=== PATIENT | female | born 1995 | race Two or more races ===

== ENCOUNTER 2023-09-19 12:51 | Emergency (ER) | payer MEDICAID ==
[~2023-09-19] VITALS: Ht 162.6 cm; Wt 60.8 kg
[2023-09-19 12:55] VITALS: TEMP 98.5
[2023-09-19] MEDS ORDERED: LIDOCAINE VISCOUS 2% UD 15 ML UDC MM ONE (14:30)
[2023-09-19] MEDS ORDERED: MAG HYDROX/AL HYDROX/SIMETH 30 ML UDC PO ONE (14:30)
[2023-09-19] MEDS ORDERED: MAG HYDROX/AL HYDROX/SIMETH 30 ML UDC ONE (14:33)
[2023-09-19 15:20] LABS: PREGNANCY TEST URINE QUAL NEGATIVE (NEGATIVE)
[2023-09-19 16:16] VITALS: BP 118/66; O2SAT 98
== END 2023-09-19 16:16 | disposition home or self-care (01) ==
LOC: ER 13:00
DX: J39.2 Other diseases of pharynx (principal)
CPT/HCPCS: 70360-TC; 84703-TC

== ENCOUNTER 2024-02-16 22:50 | Emergency (ER) | payer MEDICAID ==
[~2024-02-16] VITALS: Ht 157.5 cm; Wt 61.2 kg
[2024-02-16 23:15] VITALS: BP 106/74; TEMP 98.3; O2SAT 100
[2024-02-17] MEDS ORDERED: CLIN150C16 PO (00:14)
[2024-02-17] MEDS ORDERED: CLINDAMYCIN HCL 150 MG CAPSULE ONE (00:21)
[2024-02-17] MEDS: CLINDAMYCIN HCL 150 MG CAPSULE PO ONE (00:21)
[2024-02-17] MEDS ORDERED: HYDROCODONE/APAP 5/325MG TABLET ONE (00:21)
[2024-02-17] MEDS: HYDROCODONE/APAP 5/325MG TABLET PO ONE (00:22)
== END 2024-02-17 00:27 | disposition home or self-care (01) ==
LOC: ER 22:50
DX: A49.02 Methicillin resistant Staphylococcus aureus infection, unspecified site (principal); L03.312 Cellulitis of back [any part except buttock and flank]; L02.422 Furuncle of left axilla

== ENCOUNTER 2024-06-06 00:36 | Emergency (ER) | payer MEDICAID ==
[~2024-06-06] VITALS: Ht 157.5 cm; Wt 63.5 kg
[~2024-06-06 00:36] MED LIST: CLIN150C16 PO
[2024-06-06 01:03] LABS: HEMATOCRIT 38 % (33-45); HEMOGLOBIN 12.8 g/dL (11.5-14.8); MEAN CORPUSCULAR HEMOGLOBIN 30 PG (26.0-33.0); MEAN CORPUSCULAR VOLUME 87 fL (82-100); RED BLOOD CELL COUNT(AUTO) 4.32 MIL/uL (4.0-5.2); WHITE BLOOD COUNT (AUTO) 8.2 K/uL (4.3-11.0)
[2024-06-06 01:04] LABS: BASOPHILS % (AUTO) 0.5 % (0.0-2.0); EOSINOPHILS # (AUTO) 0.2 K/uL (0.0-0.7); EOSINOPHILS % (AUTO) 1.9 % (0.0-6.0); LYMPHOCYTES # (AUTO) 1.8 K/uL (0.8-4.8); LYMPHOCYTES % (AUTO) 22.4 % (20.0-44.0); MEAN CORPUSCULAR HGB CONC 34 g/dl (31.0-36.0); MONOCYTES # (AUTO) 0.8 K/uL (0.1-1.30); MONOCYTES % (AUTO) 9.6 % (2.0-12.0); NEUTROPHILS # (AUTO) 5.4 K/uL (1.8-8.9); NEUTROPHILS % (AUTO) 65.6 % (43.0-81.0); PLATELET COUNT (AUTO) 229 K/uL (150-450); RED CELL DISTRIBUTION WIDTH 13.8 % (11.5-15.0)
[2024-06-06 01:12] LABS: CALCIUM, SERUM 8.9 mg/dL (8.5-10.1); CARBON DIOXIDE 23 mmol/L (21-32); CHLORIDE 106 mmol/L (98-107); CREATININE 0.7 mg/dL (0.6-1.3); GLUCOSE 87 mg/dL (74-106); POTASSIUM 3.3 mmol/L (3.5-5.1); SODIUM SERUM 143 mmol/L (136-145); UREA NITROGEN, BLOOD 17 mg/dL (7-18)
[2024-06-06 01:16] LABS: ALANINE AMINOTRANSFERASE 19 U/L (12-78); ALBUMIN 3.5 g/dL (3.4-5.0); ALKALINE PHOSPHATASE 71 U/L (46-116); ASPARTATE AMINOTRANSFERASE 10 U/L (15-37); BILIRUBIN,DIRECT 0.2 mg/dL (0.0-0.2); BILIRUBIN,TOTAL 0.5 mg/dL (0.2-1.0); TOTAL PROTEIN, SERUM 7.6 g/dL (6.4-8.2)
[2024-06-06 01:18] LABS: INR 0.96 (0.91-1.10); PARTIAL THROMBOPLASTIN TIME 30.2 SEC (24.3-34.3); PROTHROMBIN TIME 10.2 SECS (9.2-11.1)
[2024-06-06 02:19] VITALS: BP 121/83; TEMP 98.2; O2SAT 98
== END 2024-06-06 02:19 | disposition home or self-care (01) ==
LOC: ER 00:39
DX: I49.3 Ventricular premature depolarization (principal); R00.2 Palpitations
CPT/HCPCS: 36415; 71045-TC; 80048-TC; 80076-TC; 84484-TC; 85025-TC; 85378-TC; 85730-TC